=== PATIENT | male | born 1960 | race Hispanic/Latino ===

== ENCOUNTER 2021-10-31 22:47 | Observation (INO) | payer BC ==
[~2021-10-31] VITALS: Ht 160 cm; Wt 91.2 kg
[~2021-10-31 22:47] MED LIST: AMLO-104 PO; ASPI-1197 PO; SIMV-43 PO; TADA5TAB PO
[2021-10-31 23:19] LABS: BASOPHILS % (AUTO) 0.7 % (0.0-5.0); EOSINOPHILS % (AUTO) 6.4 % (0.0-8.0); HEMATOCRIT 49.7 % (42-54); LYMPHOCYTES % (AUTO) 29.7 % (21.0-51.0); MEAN CORPUSCULAR HEMOGLOBIN 30.3 pg (27.0-33.0); MEAN CORPUSCULAR HGB CONC 33.8 g/dL (32.0-36.0); MEAN CORPUSCULAR VOLUME 89.7 fL (79-99); MONOCYTES % (AUTO) 10.4 % (3.0-13.0); PLATELET COUNT (AUTO) 294 K/uL (130-400); RED BLOOD CELL COUNT(AUTO) 5.54 MIL/uL (4.50-6.20); RED CELL DISTRIBUTION WIDTH 14.5 % (11.0-15.5); WHITE BLOOD COUNT (AUTO) 13.2 K/uL (4.8-10.8)
[2021-10-31 23:21] LABS: APPEARANCE,URINE CLEAR (CLEAR); BILIRUBIN,URINE NEGATIVE (NEGATIVE); COLOR,URINE YELLOW (YELLOW); GLUCOSE, URINE (UA) NEGATIVE (NEGATIVE); KETONES,URINE 5 mg/dL (NEGATIVE); LEUKOCYTE ESTERASE ,URINE NEGATIVE (NEGATIVE); NITRATE,URINE NEGATIVE (NEGATIVE); OCCULT BLOOD,URINE NEGATIVE (NEGATIVE); PROTEIN,URINE NEGATIVE (NEGATIVE); UROBILINOGEN,URINE 0.2 mg/dL (0.2-1.0)
[2021-10-31 23:28] LABS: CREATININE 1.3 mg/dL (0.5-1.5); POTASSIUM 4.1 mmol/L (3.5-5.1)
[2021-10-31] MEDS ORDERED: 0.9%NACL 1000ML 1,000 ML IV ONE (23:30)
[2021-10-31] MEDS ORDERED: MORPHINE 4 MG SYG IVP ONE (23:30)
[2021-10-31] MEDS ORDERED: KETOROLAC 30MG VIAL (30MG/ML) IVP ONE (23:30)
[2021-10-31] MEDS ORDERED: ONDANSETRON 4MG INJ IVP ONE (23:30)
[2021-10-31 23:38] LABS: ALBUMIN 3.7 g/dL (3.5-5.0); TOTAL PROTEIN, SERUM 7.9 g/dL (6.0-8.3)
[2021-11-01] VITALS (22 sets, daily range): BP systolic 120–153; BP diastolic 70–89
[2021-11-01] MEDS ORDERED: MORPHINE 4 MG SYG IVP ONE (00:30)
[2021-11-01] MEDS ORDERED: ONDANSETRON 4MG INJ IV PRN (00:30)
[2021-11-01] MEDS ORDERED: ACETAMINOPHEN 325 MG TAB PO PRN (00:30)
[2021-11-01] MEDS ORDERED: MORPHINE 2 MG SYG IV PRN (00:30)
[2021-11-01] MEDS ORDERED: ZOSYN 3.375GM +NS 50ML IV SCH (00:30)
[2021-11-01] MEDS: 0.9%NACL 1000ML 1,000 ML IV SCH ×2 (00:49→14:27)
[2021-11-01] MEDS ORDERED: FAMO40TA7 PO (00:53)
[2021-11-01] MEDS ORDERED: HYDROMORPHONE 0.5 MG SYG (0.5MG/0.5ML) IVP ONE (02:00)
[2021-11-01] MEDS ORDERED: MAG/ALUM/SIMETH 30 ML UDCUP PO ONE (02:00)
[2021-11-01] MEDS ORDERED: LIDOCAINE HCL 2% VISCOUS 15 ML UDCUP PO ONE (02:00)
[2021-11-01] MEDS ORDERED: DICYCLOMINE HCL 10 MG/5 ML ML PO ONE ×2 (02:00→02:07)
[2021-11-01] MEDS ORDERED: HYDROMORPHONE 0.5 MG SYG (0.5MG/0.5ML) ONE (02:07)
[2021-11-01] MEDS ORDERED: LIDOCAINE HCL 2% VISCOUS 15 ML UDCUP ONE (02:07)
[2021-11-01] MEDS ORDERED: MAG/ALUM/SIMETH 30 ML UDCUP ONE (02:08)
[2021-11-01] MEDS: MORPHINE 4 MG SYG IV PRN ×2 (05:48→19:25)
[2021-11-01 07:21] LABS: BASOPHILS % (AUTO) 0.3 % (0.0-5.0); EOSINOPHILS % (AUTO) 0.4 % (0.0-8.0); HEMATOCRIT 46.4 % (42-54); LYMPHOCYTES % (AUTO) 6.7 % (21.0-51.0); MEAN CORPUSCULAR HEMOGLOBIN 30.3 pg (27.0-33.0); MEAN CORPUSCULAR HGB CONC 33.4 g/dL (32.0-36.0); MEAN CORPUSCULAR VOLUME 90.6 fL (79-99); MONOCYTES % (AUTO) 6.7 % (3.0-13.0); NEUTROPHILS % (AUTO) 85.3 % (40.0-77.0); PLATELET COUNT (AUTO) 270 K/uL (130-400); RED BLOOD CELL COUNT(AUTO) 5.12 MIL/uL (4.50-6.20); RED CELL DISTRIBUTION WIDTH 14.5 % (11.0-15.5); WHITE BLOOD COUNT (AUTO) 20.4 K/uL (4.8-10.8)
[2021-11-01 07:32] LABS: CREATININE 1.2 mg/dL (0.5-1.5); MAGNESIUM 1.9 mg/dL (1.80-2.40); PHOSPHORUS 2.6 mg/dL (2.5-4.9); POTASSIUM 4.7 mmol/L (3.5-5.1)
[2021-11-01 07:34] LABS: INR 1.02 (0.85-1.15); PROTHROMBIN TIME 11.1 SEC (9.6-11.6)
[2021-11-01 07:35] LABS: PARTIAL THROMBOPLASTIN TIME 26.9 SEC (26.3-35.5)
[2021-11-01] MEDS: FAMOTIDINE 20MG VIAL IV SCH (08:53)
[2021-11-01] MEDS ORDERED: CEFAZOLIN SODIUM 1 GM VIAL IVP PRN (09:30)
[2021-11-01] MEDS ORDERED: BUPIVACAINE/PF 0.5% 10ML VIAL ONE (11:12)
[2021-11-01] MEDS ORDERED: PROPOFOL 10 MG/ML 20ML VIAL IV ONE (11:19)
[2021-11-01] MEDS ORDERED: DEXAMETHASONE SOD PHOSPHATE 10MG/ML 1ML VIAL ONE (11:19)
[2021-11-01] MEDS ORDERED: ONDANSETRON 4MG INJ ONE (11:19)
[2021-11-01] MEDS ORDERED: SUCCINYLCHOLINE 200MG/10ML SYR ONE (11:19)
[2021-11-01] MEDS ORDERED: GLYCOPYRROLATE 1 MG/5 ML SYRINGE ONE (11:19)
[2021-11-01] MEDS ORDERED: MIDAZOLAM HCL 1 MG/ML 2ML VIAL ONE (11:20)
[2021-11-01] MEDS ORDERED: FENTANYL CITRATE PF 50 MCG/1 ML 2ML VIAL ONE ×2 (11:20→12:08)
[2021-11-01] MEDS ORDERED: NEOSTIGMINE 5MG/5ML SYR IV ONE (11:20)
[2021-11-01] MEDS ORDERED: ROCURONIUM 10MG/1ML SYR 10 MG/ML ML ONE (11:20)
[2021-11-01] MEDS ORDERED: CEFAZOLIN SODIUM 2 GM VIAL IV ONE (11:52)
[2021-11-01] MEDS ORDERED: KETOROLAC 30MG VIAL (30MG/ML) ONE (12:07)
[2021-11-01] MEDS ORDERED: DEXAMETHASONE SOD PHOSPHATE 4 MG/ML 1ML VIAL ONE (12:13)
[2021-11-01] MEDS: LACTATED RINGERS 1000ML 1,000 ML IV ONE (12:37)
[2021-11-01] MEDS ORDERED: ROCURONIUM BROMIDE 10MG/1ML 5ML VL ONE (12:37)
[2021-11-01] MEDS ORDERED: ESMOLOL HCL 10 MG/ML 10 ML VIAL ONE (12:53)
[2021-11-01] MEDS ORDERED: MEPERIDINE-PF 50 MG/ML SYG ONE (13:18)
[2021-11-01] MEDS: ZOSYN 3.375GM +NS 50ML IV SCH ×2 (14:26→22:17)
[2021-11-02] VITALS: BP 120/83
[2021-11-02 04:00] VITALS: BP 114/67
[2021-11-02 05:25] LABS: BASOPHILS % (AUTO) 0.2 % (0.0-5.0); EOSINOPHILS % (AUTO) 0.1 % (0.0-8.0); HEMATOCRIT 41.7 % (42-54); LYMPHOCYTES % (AUTO) 10.3 % (21.0-51.0); MEAN CORPUSCULAR HEMOGLOBIN 29.9 pg (27.0-33.0); MEAN CORPUSCULAR HGB CONC 33.1 g/dL (32.0-36.0); MEAN CORPUSCULAR VOLUME 90.3 fL (79-99); MONOCYTES % (AUTO) 7.9 % (3.0-13.0); PLATELET COUNT (AUTO) 245 K/uL (130-400); RED BLOOD CELL COUNT(AUTO) 4.62 MIL/uL (4.50-6.20); RED CELL DISTRIBUTION WIDTH 14.7 % (11.0-15.5)
[2021-11-02 05:49] LABS: ALBUMIN 2.8 g/dL (3.5-5.0); CREATININE 0.9 mg/dL (0.5-1.5); POTASSIUM 4.3 mmol/L (3.5-5.1); TOTAL PROTEIN, SERUM 6.5 g/dL (6.0-8.3)
[2021-11-02] MEDS: ZOSYN 3.375GM +NS 50ML IV SCH ×3 (06:03→21:09)
[2021-11-02] MEDS: 0.9%NACL 1000ML 1,000 ML IV SCH (06:45)
[2021-11-02 08:00] VITALS: BP 131/82
[2021-11-02] MEDS ORDERED: MAGNESIUM 2GM PREMIX 50ML 0 ML IV ONE (08:31)
[2021-11-02] MEDS: FAMOTIDINE 20MG VIAL IV SCH (08:34)
[2021-11-02] MEDS: MORPHINE 4 MG SYG IV PRN ×2 (08:34→21:10)
[2021-11-02 12:00] VITALS: BP 144/88
[2021-11-02] MEDS: LACTATED RINGERS 1000ML 1,000 ML IV ONE (13:04)
[2021-11-02 16:00] VITALS: BP 124/76
[2021-11-02 20:00] VITALS: BP 134/76
[2021-11-02] MEDS: AMLODIPINE-BENAZEPRIL 5-20 MG PO SCH ×2 (21:00→23:41)
[2021-11-02] MEDS: SIMVASTATIN 20 MG TABLET PO SCH (21:09)
[2021-11-03] VITALS (7 sets, daily range): BP systolic 131–163; BP diastolic 59–99
[2021-11-03] MEDS: ZOSYN 3.375GM +NS 50ML IV SCH ×3 (05:24→22:51)
[2021-11-03 05:35] LABS: BASOPHILS % (AUTO) 0.6 % (0.0-5.0); EOSINOPHILS % (AUTO) 3.4 % (0.0-8.0); HEMATOCRIT 38.2 % (42-54); LYMPHOCYTES % (AUTO) 22.2 % (21.0-51.0); MEAN CORPUSCULAR HEMOGLOBIN 30.6 pg (27.0-33.0); MEAN CORPUSCULAR HGB CONC 33.2 g/dL (32.0-36.0); MONOCYTES % (AUTO) 9.7 % (3.0-13.0); NEUTROPHILS % (AUTO) 63.4 % (40.0-77.0); PLATELET COUNT (AUTO) 231 K/uL (130-400); RED BLOOD CELL COUNT(AUTO) 4.15 MIL/uL (4.50-6.20); WHITE BLOOD COUNT (AUTO) 11.9 K/uL (4.8-10.8)
[2021-11-03] MEDS: FAMOTIDINE 20MG VIAL IV SCH (09:00)
[2021-11-03] MEDS: ASPIRIN 81MG CHEW TAB PO SCH (09:00)
[2021-11-03] MEDS: SIMVASTATIN 20 MG TABLET PO SCH (20:21)
[2021-11-03] MEDS: AMLODIPINE-BENAZEPRIL 5-20 MG PO SCH (20:21)
[2021-11-04 03:48] VITALS: BP 128/69
[2021-11-04 05:31] LABS: BASOPHILS % (AUTO) 0.6 % (0.0-5.0); EOSINOPHILS % (AUTO) 6.9 % (0.0-8.0); HEMATOCRIT 39.4 % (42-54); LYMPHOCYTES % (AUTO) 24.2 % (21.0-51.0); MEAN CORPUSCULAR HGB CONC 32.7 g/dL (32.0-36.0); MEAN CORPUSCULAR VOLUME 91.6 fL (79-99); MONOCYTES % (AUTO) 9.5 % (3.0-13.0); PLATELET COUNT (AUTO) 253 K/uL (130-400); RED CELL DISTRIBUTION WIDTH 14.9 % (11.0-15.5); WHITE BLOOD COUNT (AUTO) 11.2 K/uL (4.8-10.8)
[2021-11-04 05:39] LABS: CREATININE 1.1 mg/dL (0.5-1.5)
[2021-11-04] MEDS: ZOSYN 3.375GM +NS 50ML IV SCH ×2 (06:07→14:00)
[2021-11-04 07:15] VITALS: BP 122/78
[2021-11-04] MEDS: ASPIRIN 81MG CHEW TAB PO SCH (09:09)
[2021-11-04] MEDS: FAMOTIDINE 20MG VIAL IV SCH (09:09)
[2021-11-04 12:16] VITALS: BP 121/74
[2021-11-04 16:05] VITALS: BP 153/89
[2021-11-04 16:52] LABS: CHOLESTEROL 120 mg/dL (<200); HDL CHOLESTEROL 34 mg/dL (29-71); LDL DIRECT 68 mg/dL (0-99); TRIGLYCERIDES 110 mg/dL (30-200)
== END 2021-11-04 19:25 | disposition home or self-care (01) ==
LOC: EDH 22:47 → EDHIP 11-01 00:26 → INTOOBSV 11-01 00:26 → 4DH 11-01 14:43
PROVIDERS: ADMIT Internal Medicine; ATTEND Internal Medicine
DX: K80.20 Calculus of gallbladder without cholecystitis without obstruction (principal); Z20.822 Contact with and (suspected) exposure to COVID-19; K82.A1 Gangrene of gallbladder in cholecystitis; D72.829 Elevated white blood cell count, unspecified; I10 Essential (primary) hypertension; E78.00 Pure hypercholesterolemia, unspecified; E78.5 Hyperlipidemia, unspecified; K80.00 Calculus of gallbladder with acute cholecystitis without obstruction; K82.8 Other specified diseases of gallbladder; Z79.82 Long term (current) use of aspirin; Z79.899 Other long term (current) drug therapy; Z98.890 Other specified postprocedural states
CPT/HCPCS: 96375 ×2; 99285; 84484; 80053 ×2; 83690 ×2; 85025 ×5; 81003; 36415 ×5; 76705; 93005; 96376 ×4; 96365; 96366 ×6; 83735 ×2; 84100; 80048 ×3; 85610; 85730; 86850; 86900; 86901; 87635; 47562; 80061; J2405 ×2; J2270 ×6; J1885 ×2; J7030 ×3; J0690 ×2; J7120; J3490 ×8; J3010 ×2; J0330; J1100 ×2; J2710; J2250; J2704; J2543 ×10; J2175; J1170; C1769 ×3; A4649 ×4; A4930; A4223; A4657; A4222; A4600; G0378 ×56; J3475

== ENCOUNTER 2024-02-19 02:13 | Emergency (ER) | payer MEDICARE ==
[~2024-02-19] VITALS: Ht 165.1 cm; Wt 83.9 kg
[~2024-02-19 02:13] MED LIST changes: +FAMO40TA7 PO
[2024-02-19 02:48] LABS: BASOPHILS # (AUTO) 0.12 K/uL (0.00-0.20); BASOPHILS % (AUTO) 0.6 % (0.0-5.0); EOSINOPHILS # (AUTO) 0.13 K/uL (0.00-0.70); EOSINOPHILS % (AUTO) 0.7 % (0.0-8.0); HEMATOCRIT 58.8 % (42-54); IMMATURE GRANULOCYTE ABSOLUTE 0.22 K/uL (0-1); LYMPHOCYTES # (AUTO) 1.6 K/uL (1.0-4.8); LYMPHOCYTES % (AUTO) 8.2 % (21.0-51.0); MEAN CORPUSCULAR HEMOGLOBIN 30.1 pg (27.0-33.0); MEAN CORPUSCULAR HGB CONC 33.5 g/dL (32.0-36.0); MEAN CORPUSCULAR VOLUME 89.8 fL (79-99); MONOCYTES % (AUTO) 5.4 % (3.0-13.0); NEUTROPHILS # (AUTO) 15.9 K/uL (1.8-7.7); NEUTROPHILS % (AUTO) 83.9 % (40.0-77.0); PLATELET COUNT (AUTO) 265 K/uL (130-400); RED BLOOD CELL COUNT(AUTO) 6.55 MIL/uL (4.50-6.20); RED CELL DISTRIBUTION WIDTH 15.2 % (11.0-15.5)
[2024-02-19 02:57] LABS: CREATININE 1.4 mg/dL (0.5-1.3); POTASSIUM 4.9 mmol/L (3.5-5.1)
[2024-02-19] MEDS: morPHINE 2 MG SYG IVP ONE (03:14)
[2024-02-19] MEDS: ondanSETRON 4MG INJ IVP ONE (03:14)
[2024-02-19] MEDS: 0.9%NACL 1000ML 1,000 ML IV ONE (03:14)
--- NOTE | 2024-02-19 04:21 | ERN ---
ED Note History of Present Illness Stated Complaint: ABDOMINAL PAIN, NAUSEA ONSET 0200 Chief Complaint: Abdominal Pain Time Seen by MD: 02:25 Dictation: Mr. Pool is a 64-year-old overweight male who came into the ER with complaints of abdominal pain that started at 2:00 a.m.. Apparently they were at [employer] and received vegetables and he did not realize that they vegetables were mixed with cooked chicken but raw meat and he ate some carrots as soon as he went home. He began experiencing crampy abdominal pain with severe nausea and hence he came into the ER for further evaluation No history of any diarrhea he feels like vomiting but is unable to Temperature 98.4 pulse 92 respirations 17 blood pressure 134/89 with a pulse oximetry of 94% on room air His chronic medical problems include hypertension hyperlipidemia history of colon surgery for diverticulitis. Allergies: Coded Allergies: No Known Drug Allergies (Unverified Allergy, Unknown, 12/26/16) Home Meds Reported Medications Famotidine (Famotidine) 40 Mg Tablet, 40 MG PO DAILY, TAB 11/01/21 Amlodipine Besylate/Benazepril (Amlodipine-Benazepril 5-20 mg) 1 Each Capsule, 1 EACH PO HS, CAP 01/20/17 Aspirin (Aspirin) 81 Mg Tab.chew, 81 MG PO DAILY, TAB.CHEW 01/20/17 Tadalafil (Cialis) 5 Mg Tablet, 5 MG PO AD, TAB 01/20/17 Simvastatin (Simvastatin) 20 Mg Tablet, 20 MG PO HS, TAB 01/20/17 Past Medical History Past Medical History: High Cholesterol, Hypertension Surgical History: Cholecystectomy, Other Surgical History Other: COLON SX Family History: Negative Social History: Negative, Other RN Note Reviewed/Agreed w/PFSH: Yes Review of System Dictation Constitutional: Negative for fever,chills, and weight loss Eyes: Negative for injury, pain,redness, and discharge ENT: Negative for injury,pain or swelling Cardiovascular: Negative for chest pain, palpitations, and edema Respiratory: Negative for shortness of breath, cough, and wheezing, Abdomen/GI: Positive for abdominal pain, nausea, denies vomiting, diarrhea, and he also has a history of constipation Back: Negative for injury and pain : Negative for injury, bleeding and discharge MS/Extremity: Negative for injury and deformity Skin: Negative for rash, and discoloration Neuro: Negative for headache, weakness, numbness, tingling, and seizure Psych: Negative for suicide ideation, homicidal ideation, and hallucinations Initial Vital Sign VS Vital Signs Date Time Temp Pulse Resp B/P (MAP) Pulse Ox O2 Delivery O2 Flow Rate FiO2 02/19/24 02:15 98.4 92 17 134/89 94 Room Air* 0 21 Physical Exam Dictation General: awake, alert, NAD overweight male not in any distress Head/Face: Normocephalic, atraumatic Eyes: PERRL, EOMI, vision at baseline ENT: oral cavity clear, TMs clear, no signs of infection mucous membranes are dry Neck: Trachea midline, supple, no nuchal rigidity Cardiovascular: RRR, normal S1/S2, No MRGs, no JVD Respiratory: CTAB, no respiratory distress, No rales or wheezes Abdomen: Soft, mild tenderness in the epigastric area, very obese, normal bowel sounds, no guarding or rebound. Skin: Warm, dry, normal turgor, no rash MS/Extremity: Pulses equal, no cyanosis, neurovascular intact, FROM Neuro: COAx4, GCS 15, strength 5/5, CN 2-12 intact, normal cerebellar exam, normal gait, Psych: Normal behavior, mood, and affect normal Extremities-trace edema without any palpable cords, Homans sign is negative Results (Laboratory/Radiology) Laboratory/Radiology Laboratory Tests Test 02/19/24 02:37 White Blood Count 19.0 K/uL (4.8-10.8) H Red Blood Count 6.55 MIL/uL (4.50-6.20) H Hemoglobin 19.7 g/dL (14.0-18.0) H Hematocrit 58.8 % (42-54) H Mean Corpuscular Volume 89.8 fL (79-99) Mean Corpuscular Hemoglobin 30.1 pg (27.0-33.0) Mean Corpuscular Hemoglobin Concent 33.5 g/dL (32.0-36.0) Red Cell Distribution Width 15.2 % (11.0-15.5) Platelet Count 265 K/uL (130-400) Mean Platelet Volume 9.7 fL (7.5-10.5) Immature Granulocyte % (Auto) 1.2 % (0-1) H Neutrophils (%) (Auto) 83.9 % (40.0-77.0) H Lymphocytes (%) (Auto) 8.2 % (21.0-51.0) L Monocytes (%) (Auto) 5.4 % (3.0-13.0) Eosinophils (%) (Auto) 0.7 % (0.0-8.0) Basophils (%) (Auto) 0.6 % (0.0-5.0) Neutrophils # (Auto) 15.9 K/uL (1.8-7.7) H Lymphocytes # (Auto) 1.6 K/uL (1.0-4.8) Monocytes # (Auto) 1.0 K/uL (0.1-1.0) Eosinophils # (Auto) 0.13 K/uL (0.00-0.70) Basophils # (Auto) 0.12 K/uL (0.00-0.20) Absolute Immature Granulocyte (auto 0.22 K/uL (0-1) Nucleated Red Blood Cells 0.0 % (0.0-0.19) White Cell Morphology Comment See comments Sodium Level 131 mmol/L (136-145) L Potassium Level 4.9 mmol/L (3.5-5.1) Chloride Level 94 mmol/L (101-111) L Carbon Dioxide Level 30 mmol/L (21-32) Blood Urea Nitrogen 10 mg/dL (7-18) Creatinine 1.4 mg/dL (0.5-1.3) H Glomerular Filtration Rate Calc 56 mL/min (>90) Random Glucose 163 mg/dL (70-105) H Total Calcium 10.2 mg/dL (8.5-10.1) H Lipase 29 U/L (16-77) Labs Reviewed?: Yes ED Course ED Course Orders Procedure Category Date Status Time Cbc With Differential LAB 02/19/24 Complete 02:28 Basic Metabolic Panel LAB 02/19/24 Complete 02:28 Lipase LAB 02/19/24 Complete 02:28 Ondansetron 4mg Inj PHA 02/19/24 Complete (Zofran 4mg Inj) 02:30 Morphine 2mg Syg PHA 02/19/24 Complete (Morphine 2mg Syg) 02:30 0.9%Nacl 1000ml (Ns PHA 02/19/24 Complete 1000ml) 03:30 Ceftriaxone 1g Vial PHA 02/19/24 Complete (Rocephine 1g Inj) 05:00 Urinalysis Profile LAB 02/19/24 Logged 05:13 Current Medications Medications (Trade) Dose Ordered Sig/Kartik Route PRN Reason Start Time Stop Time Status Last Admin Dose Admin Ceftriaxone Sodium (ROCEphine 1G INJ) 1 gm ONCE ONCE IVPB 02/19/24 05:00 02/19/24 05:01 DC 02/19/24 05:11 Morphine Sulfate (morPHINE 2MG SYG) 2 mg ONCE ONCE IVP 02/19/24 02:30 02/19/24 02:36 DC 02/19/24 03:14 Ondansetron HCl (zoFRAN 4MG INJ) 4 mg ONCE ONCE IVP 02/19/24 02:30 02/19/24 02:36 DC 02/19/24 03:14 Sodium Chloride 1,000 ml @ 0 mls/hr ONCE ONCE IV 02/19/24 03:30 02/19/24 03:31 DC 02/19/24 03:14 Vital Signs Date Time Temp Pulse Resp B/P (MAP) Pulse Ox O2 Delivery O2 Flow Rate FiO2 02/19/24 02:16 98.4 92 17 134/89 94 Room Air 0 02/19/24 02:15 98.4 92 17 134/89 94 Room Air* 0 21 We will perform diagnostic labs, advanced imaging and administer medications according to the patient's complaint. Once the results are available, will review and personally interpreted the labs to rule out any acute life- threatening emergency the trach require immediate intervention and treatment. I will then re-evaluate the patient after treatment and diagnostic exams have return to determine whether the patient requires any further testing, can safely be discharged home or need further admission to hospital for additional treatment and evaluation. Labs [place] [address] hemoglobin 19.7 hematocrit 58. BNP 7 is significant for a sodium of 131 chloride 94 bicarb 30 BUN and creatinine are 10 and 1.4 Hydration antiemetics for now Medical Decision Making MDM MDM: Differential diagnosis: Food poisoning, viral gastroenteritis, diverticulitis, colitis Rationale: Tests considered and ordered secondary to shared decision making include: Previous outside records reviewed: Old ER visits. Risk of complication and/or morbidity or mortality of patient management: None Medications-Per medication reconciliation Need for hospitalization: Patient does not meet criteria for hospitalization. Need for emergency major/minor surgery: No There are no social concerns with this patient. Prescription drug management Prescriptions will include symptomatic care Patient's prior external medical records from other ER visits were reviewed by me as indicated. Prior testing and results from previous visits were reviewed. Prior tests were taken into account with medical decision making and resource utilization, independent historian/historians were used to obtain complete medical history. I independently interpreted the test that were performed, results were reviewed by me and considered findings on radiology if ordered. Medical management and examination interpretation discussions were had by me with other qualified healthcare professionals as indicated for the patient's care. Problem List Problem List: (1) Abdominal pain (2) Food poisoning (3) Leukocytosis (4) Hyponatremia (5) Acute kidney injury DX & DISP Disposition: Discharge Departure Impression: Primary Impression: Abdominal pain Additional Impressions: Food poisoning, Leukocytosis, Hyponatremia, Acute kidney injury Condition: Stable Scripts Amoxicillin/Potassium Clav (Augmentin 500-125 Tablet) 500 Mg-125 Mg Tablet 1 TAB PO BID for 10 Days, #20 TAB 0 Refills Prov: GILDARDO LANDA MD 02/19/24 Additional Instructions: Patient and the caregiver have been informed of all the diagnostic tests and the imaging conducted during the today's visit to the emergency room and has verbalized understanding of the results I have personally reviewed and interpreted all diagnostic exams performed here in the ER today as well as the vital signs documented by the nursing staff. The patient is now being discharged to home and should follow up with the primary care physician or the specialist as directed by the ER staff. Follow-up with primary care provider in 1 to 2 days. Take medications as directed here in the emergency room. Okay to continue home medications unless otherwise discussed during your visit in the emergency room today. Return to your nearest emergency room if symptoms worsen or if there is no improvement. Call 911 if you need immediate assistance. Take Tylenol or Motrin [id number] as needed and if no contraindications are present. Increase oral hydration. A wound culture or urine culture was ordered here in the emergency room department please follow-up with primary care provider and advise them to get repeat ports from our facility. If you had any Anurag wrap/splints that were applied here, please do not remove them until you see your primary care or specialty. Patient has a scheduled appointment with the GI for colonoscopy soon and he will get preprocedure labs in the next few days. Patient and verbalized full understanding that they need to increase fluid intake and must follow up to get the labs done to make sure that the leukocytosis is improving. I also instructed them to return to the emergency room should his symptoms worsen or recur Referrals: MANNY LITTLE (PCP) GILDARDO LANDA MD Feb 19, 2024 04:21
[2024-02-19] MEDS: cefTRIAXone 1G VIAL IVPB ONE (05:11)
[2024-02-19] MEDS ORDERED: AMOX-426 PO (05:54)
[2024-02-19 06:03] VITALS: BP 124/74; PULSE 88; RESP 15; TEMP 98.1; O2SAT 97
[2024-02-19 07:48] LABS: APPEARANCE,URINE CLOUDY (CLEAR); BILIRUBIN,URINE 0.5 mg/dL (NEGATIVE); COLOR,URINE YELLOW (YELLOW); GLUCOSE, URINE (UA) 70 mg/dL (NEGATIVE); KETONES,URINE 20 mg/dL (NEGATIVE); LEUKOCYTE ESTERASE ,URINE NEGATIVE Leu/uL (NEGATIVE); NITRATE,URINE NEGATIVE (NEGATIVE); OCCULT BLOOD,URINE NEGATIVE (NEGATIVE); PH,URINE 5.5 (5.0-8.0); PROTEIN,URINE 100 mg/dL (NEGATIVE)
[2024-02-19 07:50] LABS: ADD UA MICROSCOPIC YES
[2024-02-19 07:59] LABS: BACTERIA,URINE RARE /HPF (None Seen); HYALINE CASTS, URINE >100 /LPF (0-1 /LPF); MUCUS,URINE MANY LPF (None Seen); OTHER CASTS, URINE 2 /LPF (None Seen); SQUAMOUS EPITHELIAL CELL,UR RARE /HPF (0-2)
== END 2024-02-19 06:08 | disposition home or self-care (01) ==
LOC: EDH 02:13
DX: A05.9 Bacterial foodborne intoxication, unspecified (principal); N17.9 Acute kidney failure, unspecified; E87.1 Hypo-osmolality and hyponatremia; D72.829 Elevated white blood cell count, unspecified; E78.00 Pure hypercholesterolemia, unspecified; I10 Essential (primary) hypertension; Z79.82 Long term (current) use of aspirin; Z90.49 Acquired absence of other specified parts of digestive tract
CPT/HCPCS: 99284; 96365; 96375; 80048; 83690; 85025; 81001; 36415; J2270; J7030; J0696; J2405